=== PATIENT | female | born 1955 | race Caucasian/White ===

== ENCOUNTER 2018-06-29 13:51 | Inpatient (IN) | payer BC ==
[2018-06-29] MEDS: SODIUM CHLORIDE 0.9% 1L BAG IV* (14:03)
[2018-06-29 14:05] LABS: ADD MAN DIFF? NO
[2018-06-29 14:14] LABS: BASOPHILS % 0.1 % (0.0-2.0); HEMATOCRIT 44.1 % (37.0-47.0); HEMOGLOBIN 14.3 g/dl (12.0-16.0); LYMPHOCYTES # 2.3 10^3/ul (0.8-2.9); LYMPHOCYTES % 11.4 % (15.0-51.0); MEAN CORPUSCULAR HEMOGLOBIN 29.5 pg (29.0-33.0); MEAN CORPUSCULAR HGB CONC 32.4 g/dl (32.0-37.0); MEAN CORPUSCULAR VOLUME 90.9 fl (82.0-101.0); MEAN PLATELET VOLUME 11.1 fl (7.4-10.4); MONOCYTE # 1.5 10^3/ul (0.3-0.9); MONOCYTES % 7.5 % (0.0-11.0); NEUTROPHIL # 16.1 10^3/ul (1.6-7.5); NEUTROPHILS % 80.5 % (39.0-77.0); PLATELET COUNT 260 10^3/UL (140-415); RED BLOOD COUNT 4.85 10^6/ul (4.20-5.40); RED CELL DISTRIBUTION WIDTH 14.9 % (11.5-14.5)
[2018-06-29 14:14] LABS: WHITE BLOOD COUNT 20.1 10^3/ul (4.8-10.8)
[2018-06-29 14:22] LABS: ADD UMIC NO; UR ASCORBIC ACID NEGATIVE (NEGATIVE); UR BILIRUBIN (Dip) NEGATIVE (NEGATIVE); UR BLOOD (Dip) NEGATIVE (NEGATIVE); UR CLARITY SLIGHTLY CLOUDY (CLEAR); UR COLOR YELLOW (YELLOW); UR GLUCOSE (Dip) NEGATIVE (NEGATIVE); UR HYALINE CAST FEW /HPF (NONE SEEN); UR KETONES (Dip) TRACE mg/dL (NEGATIVE); UR LEUKOCYTE ESTERASE (Dip) NEGATIVE Leu/ul (NEGATIVE); UR MUCUS MODERATE /HPF (NONE SEEN); UR NITRITE (Dip) NEGATIVE (NEGATIVE); UR RBC 2 /HPF (0-5); UR SPECIFIC GRAVITY (Dip) 1.021 (1.003-1.030); UR SQUAMOUS EPITHELIAL CELL FEW /HPF (FEW); UR TOTAL PROTEIN (Dip) NEGATIVE (NEGATIVE); UR UROBILINOGEN (Dip) NEGATIVE (NEGATIVE); UR WBC 5 /HPF (0-5)
[2018-06-29] MEDS ORDERED: DILTIAZEM 25 MG INJ (14:27)
[2018-06-29] MEDS: DILTIAZEM 25 MG INJ IV (14:29)
[2018-06-29 14:32] LABS: ALANINE AMINOTRANSFERASE 43 IU/L (13-69); ALBUMIN 4.4 g/dl (3.3-4.9); ALBUMIN/GLOBULIN RATIO 0.84; ALKALINE PHOSPHATASE 142 IU/L (42-121); ANION GAP 19 (5-13); ASPARTATE AMINO TRANSFERASE 89 IU/L (15-46); BILIRUBIN,INDIRECT 0.4 mg/dl (0-1.1); BILIRUBIN,TOTAL 0.4 mg/dl (0.2-1.3); BLOOD UREA NITROGEN 103 mg/dl (7-20); CALCIUM 10.8 mg/dl (8.4-10.2); CARBON DIOXIDE 20 mmol/L (21-31); CHLORIDE 111 mmol/L (97-110); CREATININE 1.41 mg/dl (0.44-1.00); Estimated GFR 38 mL/min (>60); GLUCOSE 152 mg/dl (70-220); POTASSIUM 4.2 mmol/L (3.5-5.1); SODIUM 150 mmol/L (135-144); TOTAL PROTEIN 9.6 g/dl (6.1-8.1)
[2018-06-29 14:40] LABS: CREATINE KINASE 2323 IU/L (23-200)
[2018-06-29] MEDS: LABETALOL HCL 20MG INJ IV (14:47)
[2018-06-29] MEDS: ASPIRIN 600 MG SUPP PR (14:49)
[2018-06-29 15:01] LABS: INR 1.18; PROTIME 15.1 Sec (11.9-14.9); PT RATIO 1.2
[2018-06-29 15:02] LABS: PARTIAL THROMBOPLASTIN TIME 27.3 Sec (23.0-35.0)
[2018-06-29] MEDS ORDERED: SOD CHLORIDE 0.9% 1,000 ML IV (15:39)
[2018-06-29] MEDS ORDERED: LORAZEPAM 2 MG INJ IV (16:00)
[2018-06-29] MEDS ORDERED: NACL 0.9% 3 ML SYG IV (16:00)
[2018-06-29] MEDS ORDERED: hydrALAzine 20 MG INJ IV (16:00)
[2018-06-29] MEDS ORDERED: DOCUSATE SODIUM 100 MG CAP PO (16:00)
[2018-06-29] MEDS ORDERED: morphine 2 MG INJ IV (16:00)
[2018-06-29] MEDS ORDERED: ONDANSETRON 4 MG INJ IV (16:00)
[2018-06-29] MEDS ORDERED: NITROGLYCERIN (SL) 0.4 MG TAB SL (16:00)
[2018-06-29] MEDS ORDERED: CEFEPIME 2GM/50 ML (PMX) 50 ML IVPB (16:02)
[2018-06-29] MEDS ORDERED: SODIUM BICARBONATE (IV ADD) 100 MEQ in DEXTROSE 5% 1,000 ML IV (16:30)
[2018-06-29] MEDS: ASPIRIN (EC) 81 MG TAB PO (16:30)
[2018-06-29] MEDS ORDERED: DEXTROSE 5% 1,000 ML IV (16:30)
[2018-06-29] MEDS ORDERED: DILTIAZEM-D5W 125MG/125ML DRIP 125 ML IV (16:30)
[2018-06-29 16:44] LABS: HEMOGLOBIN A1C 5.8 % (0-5.9)
[2018-06-29 16:47] LABS: CREATINE KINASE 2341 IU/L (23-200)
[2018-06-29 16:57] LABS: FREE T4 (FREE THYROXINE) 1.75 ng/dl (0.78-2.44)
[2018-06-29] MEDS ORDERED: DEXTROSE 50% 50 ML SYRINGE IV ×2 (17:00)
[2018-06-29] MEDS: INSULIN ASPART [NOVOLOG] 3 ML PEN SC ×2 (17:00→21:00)
[2018-06-29] MEDS ORDERED: GLUCAGON 1 MG INJ IM (17:00)
[2018-06-29] MEDS ORDERED: GLUCOSE GEL 15 GRAM TUBE BUCCAL (17:00)
[2018-06-29] MEDS ORDERED: GLUCOSE GEL 15 GRAM TUBE PO ×2 (17:00)
[2018-06-29 17:12] LABS: SODIUM,URINE RANDOM < 13 mmol/L (30-90)
[2018-06-29 17:13] LABS: PROTEIN/CREAT RATIO 0.09 RATIO
[2018-06-29] MEDS: FAMOTIDINE 20 MG INJ IV (17:29)
[2018-06-29] MEDS: SOD CHLORIDE 0.45% 1,000 ML IV (17:33)
[2018-06-29] MEDS: VANCOMYCIN 1 GM (PMX) 250 ML IVPB (17:33)
[2018-06-29 18:21] LABS: LACTIC ACID 2.5 mmol/L (0.5-2.0)
[2018-06-29 18:36] LABS: AADO2 Arterial 172.6 mmHg (7.0-24.0); Allen Test ACCEPTAB; Arterial Base Excess -2.4 mmol/L (-3.0-3); Arterial Blood Gas Oxygen Sat 93.5 mmHG (95.0-98.0); Arterial COHb 0.3 % (0.0-3.0); Arterial Fraction of Oxyhgb 92.9 % (93.0-99.0); Arterial HCO3 20.3 mmol/L (22.0-26.0); Arterial MetHb 0.3 % (0.0-1.5); Arterial pCO2 29.2 mmhg (35-45); MODE NASAL CANNULA; Site Right Radial
[2018-06-29] MEDS: ATORVASTATIN 80 MG TAB PO (20:40)
[2018-06-29 21:52] LABS: AADO2 Arterial 157.7 mmHg (7.0-24.0); Allen Test ACCEPTAB; Arterial Blood Gas Oxygen Sat 95.8 mmHG (95.0-98.0); Arterial COHb 0.3 % (0.0-3.0); Arterial Fraction of Oxyhgb 95.2 % (93.0-99.0); Arterial HCO3 21.5 mmol/L (22.0-26.0); Arterial MetHb 0.3 % (0.0-1.5); Arterial pCO2 29.4 mmhg (35-45); MODE NASAL CANNULA; Site Right Radial
[2018-06-29] MEDS: HEPARIN 5,000 UNIT/1 ML VIAL SC (22:17)
[2018-06-29 22:22] LABS: LACTIC ACID 1.5 mmol/L (0.5-2.0)
[2018-06-29 22:30] LABS: CREATINE KINASE 2330 IU/L (23-200)
[2018-06-29 22:35] LABS: CK INDEX 0.6; TROPONIN-I 0.056 ng/ml (0.000-0.120)
[2018-06-30] MEDS: INSULIN ASPART [NOVOLOG] 3 ML PEN SC ×6 (01:16→20:48)
[2018-06-30] MEDS: CEFEPIME 2GM/50 ML (PMX) 50 ML IVPB (01:21)
[2018-06-30 01:41] LABS: LACTIC ACID 1.3 mmol/L (0.5-2.0)
[2018-06-30] MEDS: DOXYCYCLINE 100 MG in SOD CHLORIDE 0.9% 250 ML IVPB ×3 (02:38→20:48)
[2018-06-30 05:25] LABS: ADD MAN DIFF? NO
[2018-06-30 05:35] LABS: BASOPHILS % 0.1 % (0.0-2.0); EOSINOPHILS % 0.1 % (0.0-7.0); HEMATOCRIT 34.6 % (37.0-47.0); LYMPHOCYTES # 2.1 10^3/ul (0.8-2.9); LYMPHOCYTES % 12.8 % (15.0-51.0); MEAN CORPUSCULAR HEMOGLOBIN 29.7 pg (29.0-33.0); MEAN CORPUSCULAR HGB CONC 31.8 g/dl (32.0-37.0); MEAN CORPUSCULAR VOLUME 93.5 fl (82.0-101.0); MEAN PLATELET VOLUME 11.3 fl (7.4-10.4); MONOCYTE # 1.4 10^3/ul (0.3-0.9); MONOCYTES % 8.4 % (0.0-11.0); NEUTROPHIL # 12.9 10^3/ul (1.6-7.5); NEUTROPHILS % 78.1 % (39.0-77.0); PLATELET COUNT 186 10^3/UL (140-415); RED CELL DISTRIBUTION WIDTH 15.1 % (11.5-14.5)
[2018-06-30 05:35] LABS: WHITE BLOOD COUNT 16.5 10^3/ul (4.8-10.8)
[2018-06-30] MEDS: SOD CHLORIDE 0.45% 1,000 ML IV ×3 (05:52→15:48)
[2018-06-30 05:55] LABS: HEMOGLOBIN A1C 5.8 % (0-5.9)
[2018-06-30 06:02] LABS: CHOL/HDL RATIO 9.2 RATIO; HDL CHOLESTEROL 28 mg/dl (35-98); LDL CHOLESTEROL,CALCULATED 134 mg/dl; TRIGLYCERIDES 489 mg/dl (0-149)
[2018-06-30 06:02] LABS: CHOLESTEROL 260 mg/dl (100-200); LACTIC ACID 1.5 mmol/L (0.5-2.0)
[2018-06-30 06:07] LABS: CREATINE KINASE 1536 IU/L (23-200)
[2018-06-30 06:08] LABS: URIC ACID 15.2 mg/dl (3.1-7.9)
[2018-06-30 06:09] LABS: ANION GAP 7 (5-13); BLOOD UREA NITROGEN 73 mg/dl (7-20); CALCIUM 9.1 mg/dl (8.4-10.2); CARBON DIOXIDE 22 mmol/L (21-31); CHLORIDE 122 mmol/L (97-110); CREATININE 0.93 mg/dl (0.44-1.00); Estimated GFR > 60 mL/min (>60); GLUCOSE 131 mg/dl (70-220); MAGNESIUM 2.6 mg/dl (1.7-2.5); POTASSIUM 4.3 mmol/L (3.5-5.1); SODIUM 151 mmol/L (135-144)
[2018-06-30] MEDS: ASPIRIN (EC) 81 MG TAB PO ×2 (08:11→11:49)
[2018-06-30] MEDS: HEPARIN 5,000 UNIT/1 ML VIAL SC ×2 (08:36→20:46)
[2018-06-30] MEDS: FAMOTIDINE 20 MG INJ IV (08:39)
[2018-06-30] MEDS: ALLOPURINOL 100 MG TAB PO ×3 (10:30→20:43)
[2018-06-30] MEDS: IOHEXOL 100 ML ×2 (11:33→23:11)
[2018-06-30] MEDS: SOD CHLORIDE 0.9% 100 ML ×2 (11:33→23:10)
[2018-06-30] MEDS ORDERED: PENDING SANTYL ORDER FOR WOUND CARE XX (14:00)
[2018-06-30 16:17] LABS: ERYTHROCYTE SEDIMENTATION RATE 76 mm/Hr (0-30)
[2018-06-30 18:28] LABS: RAPID PLASMA REAGIN NONREACTIVE (NR)
[2018-06-30] MEDS: ATORVASTATIN 80 MG TAB PO (20:44)
[2018-06-30] MEDS: ACETAMINOPHEN 325 MG TAB PO (23:42)
[2018-07-01] MEDS: HYDROCODONE/APAP (5/325) TAB PO (00:14)
[2018-07-01] MEDS: INSULIN ASPART [NOVOLOG] 3 ML PEN SC ×6 (01:00→23:54)
[2018-07-01] MEDS: ALBUTEROL/IPRATROPIUM (NEB) 3 ML AMP HHN (01:05)
[2018-07-01] MEDS: SOD CHLORIDE 0.45% 1,000 ML IV ×3 (03:10→19:00)
[2018-07-01] MEDS ORDERED: COLLAGENASE 5 GM (UD JAR) TOP (04:00)
[2018-07-01 05:34] LABS: ADD MAN DIFF? NO
[2018-07-01 05:38] LABS: AMPHETAMINE/METHAMPHETAMINE Negative (NEGATIVE); BARBITURATES Negative (NEGATIVE); BENZODIAZEPINES Negative (NEGATIVE); CANNABINOIDS Negative (NEGATIVE); COCAINE Negative (NEGATIVE); OPIATES Negative (NEGATIVE)
[2018-07-01 05:44] LABS: WHITE BLOOD COUNT 12.4 10^3/ul (4.8-10.8)
[2018-07-01 05:44] LABS: ABNORMAL IP MESSAGE 1; BASOPHIL # 0.1 10^3/ul (0.0-0.1); BASOPHILS % 0.5 % (0.0-2.0); EOSINOPHILS # 0.2 10^3/ul (0.0-0.5); EOSINOPHILS % 1.9 % (0.0-7.0); HEMATOCRIT 31.3 % (37.0-47.0); HEMOGLOBIN 9.5 g/dl (12.0-16.0); LYMPHOCYTES # 3.9 10^3/ul (0.8-2.9); LYMPHOCYTES % 31.6 % (15.0-51.0); MEAN CORPUSCULAR HGB CONC 30.4 g/dl (32.0-37.0); MEAN CORPUSCULAR VOLUME 98.7 fl (82.0-101.0); MEAN PLATELET VOLUME 11.1 fl (7.4-10.4); MONOCYTE # 1.6 10^3/ul (0.3-0.9); MONOCYTES % 12.8 % (0.0-11.0); NEUTROPHIL # 6.5 10^3/ul (1.6-7.5); NEUTROPHILS % 52.1 % (39.0-77.0); PLATELET COUNT 156 10^3/UL (140-415); RED BLOOD COUNT 3.17 10^6/ul (4.20-5.40); RED CELL DISTRIBUTION WIDTH 15.1 % (11.5-14.5)
[2018-07-01 06:02] LABS: POSITIVE DIFF @See below
[2018-07-01 06:23] LABS: CREATINE KINASE 1012 IU/L (23-200)
[2018-07-01 06:24] LABS: ANION GAP 8 (5-13); BLOOD UREA NITROGEN 35 mg/dl (7-20); CALCIUM 8.9 mg/dl (8.4-10.2); CARBON DIOXIDE 21 mmol/L (21-31); CHLORIDE 118 mmol/L (97-110); CREATININE 0.81 mg/dl (0.44-1.00); Estimated GFR > 60 mL/min (>60); GLUCOSE 86 mg/dl (70-220); POTASSIUM 3.9 mmol/L (3.5-5.1); SODIUM 147 mmol/L (135-144)
[2018-07-01] MEDS: BALSAM PERU/CASTOR OIL 60 GM TUBE TOP (08:11)
[2018-07-01] MEDS: COLLAGENASE 5 GM (UD JAR) TOP (08:11)
[2018-07-01] MEDS: ASPIRIN (EC) 81 MG TAB PO (08:12)
[2018-07-01] MEDS: FAMOTIDINE 20 MG TAB PO (08:12)
[2018-07-01] MEDS: DOXYCYCLINE 100 MG in SOD CHLORIDE 0.9% 250 ML IVPB (08:13)
[2018-07-01] MEDS: HEPARIN 5,000 UNIT/1 ML VIAL SC ×2 (08:23→21:53)
[2018-07-01] MEDS: ALLOPURINOL 100 MG TAB PO ×2 (08:25→21:38)
[2018-07-01 12:55] LABS: TROPONIN-I 0.025 ng/ml (0.000-0.120)
[2018-07-01 12:55] LABS: B-TYPE NATRIURETIC PEPTIDE 906 PG/ML (0-125)
[2018-07-01] MEDS: ATORVASTATIN 80 MG TAB PO (21:38)
[2018-07-01] MEDS: DOXYCYCLINE 100 MG TAB PO (21:38)
[2018-07-02] MEDS: ACETAMINOPHEN 325 MG TAB PO (00:20)
[2018-07-02] MEDS: SOD CHLORIDE 0.45% 1,000 ML IV ×4 (00:25→23:21)
[2018-07-02] MEDS: INSULIN ASPART [NOVOLOG] 3 ML PEN SC ×6 (02:36→20:48)
[2018-07-02 05:55] LABS: ADD MAN DIFF? NO
[2018-07-02 06:04] LABS: WHITE BLOOD COUNT 11.1 10^3/ul (4.8-10.8)
[2018-07-02 06:04] LABS: BASOPHILS % 0.3 % (0.0-2.0); EOSINOPHILS # 0.3 10^3/ul (0.0-0.5); EOSINOPHILS % 2.3 % (0.0-7.0); HEMATOCRIT 30.9 % (37.0-47.0); HEMOGLOBIN 9.8 g/dl (12.0-16.0); LYMPHOCYTES # 2.9 10^3/ul (0.8-2.9); LYMPHOCYTES % 26.5 % (15.0-51.0); MEAN CORPUSCULAR HEMOGLOBIN 30.2 pg (29.0-33.0); MEAN CORPUSCULAR HGB CONC 31.7 g/dl (32.0-37.0); MEAN CORPUSCULAR VOLUME 95.4 fl (82.0-101.0); MEAN PLATELET VOLUME 10.9 fl (7.4-10.4); MONOCYTE # 1.3 10^3/ul (0.3-0.9); MONOCYTES % 11.4 % (0.0-11.0); NEUTROPHIL # 6.5 10^3/ul (1.6-7.5); NEUTROPHILS % 58.7 % (39.0-77.0); PLATELET COUNT 161 10^3/UL (140-415); RED BLOOD COUNT 3.24 10^6/ul (4.20-5.40); RED CELL DISTRIBUTION WIDTH 14.5 % (11.5-14.5)
[2018-07-02 06:27] LABS: ANION GAP 6 (5-13); BLOOD UREA NITROGEN 22 mg/dl (7-20); CALCIUM 8.7 mg/dl (8.4-10.2); CARBON DIOXIDE 25 mmol/L (21-31); CHLORIDE 111 mmol/L (97-110); CREATININE 0.72 mg/dl (0.44-1.00); Estimated GFR > 60 mL/min (>60); GLUCOSE 156 mg/dl (70-220); POTASSIUM 3.5 mmol/L (3.5-5.1); SODIUM 142 mmol/L (135-144)
[2018-07-02] MEDS: BALSAM PERU/CASTOR OIL 60 GM TUBE TOP (09:00)
[2018-07-02] MEDS: DOXYCYCLINE 100 MG TAB PO ×2 (10:16→20:49)
[2018-07-02] MEDS: ASPIRIN (EC) 81 MG TAB PO (10:16)
[2018-07-02] MEDS: ALLOPURINOL 100 MG TAB PO ×2 (10:16→20:49)
[2018-07-02] MEDS: FAMOTIDINE 20 MG TAB PO (10:16)
[2018-07-02] MEDS: COLLAGENASE 5 GM (UD JAR) TOP (10:17)
[2018-07-02 10:43] LABS: CREATINE KINASE 905 IU/L (23-200)
[2018-07-02] MEDS: LEVOFLOXACIN 750MG/D5W (PMX) 150 ML IVPB (11:55)
[2018-07-02] MEDS: ATORVASTATIN 80 MG TAB PO (20:48)
[2018-07-02] MEDS: MAGNESIUM HYDROXIDE 30ML CUP PO (20:53)
[2018-07-03] MEDS: SOD CHLORIDE 0.45% 1,000 ML IV ×2 (01:00→10:06)
[2018-07-03] MEDS: INSULIN ASPART [NOVOLOG] 3 ML PEN SC ×6 (01:40→20:44)
[2018-07-03 06:24] LABS: ADD MAN DIFF? NO
[2018-07-03 06:36] LABS: BASOPHILS % 0.2 % (0.0-2.0); EOSINOPHILS # 0.2 10^3/ul (0.0-0.5); EOSINOPHILS % 1.5 % (0.0-7.0); HEMATOCRIT 29.6 % (37.0-47.0); HEMOGLOBIN 9.8 g/dl (12.0-16.0); LYMPHOCYTES # 2.1 10^3/ul (0.8-2.9); LYMPHOCYTES % 19.3 % (15.0-51.0); MEAN CORPUSCULAR HEMOGLOBIN 30.2 pg (29.0-33.0); MEAN CORPUSCULAR HGB CONC 33.1 g/dl (32.0-37.0); MEAN CORPUSCULAR VOLUME 91.4 fl (82.0-101.0); MEAN PLATELET VOLUME 11.7 fl (7.4-10.4); MONOCYTE # 1.1 10^3/ul (0.3-0.9); MONOCYTES % 9.7 % (0.0-11.0); NEUTROPHIL # 7.5 10^3/ul (1.6-7.5); PLATELET COUNT 174 10^3/UL (140-415); RED BLOOD COUNT 3.24 10^6/ul (4.20-5.40); RED CELL DISTRIBUTION WIDTH 14.1 % (11.5-14.5)
[2018-07-03 06:52] LABS: CREATINE KINASE 516 IU/L (23-200)
[2018-07-03 07:31] LABS: ANION GAP 9 (5-13); BLOOD UREA NITROGEN 19 mg/dl (7-20); CALCIUM 8.3 mg/dl (8.4-10.2); CARBON DIOXIDE 28 mmol/L (21-31); CHLORIDE 101 mmol/L (97-110); CREATININE 0.64 mg/dl (0.44-1.00); Estimated GFR > 60 mL/min (>60); GLUCOSE 175 mg/dl (70-220); POTASSIUM 3.7 mmol/L (3.5-5.1); SODIUM 138 mmol/L (135-144)
[2018-07-03] MEDS: ASPIRIN (EC) 81 MG TAB PO (09:35)
[2018-07-03] MEDS: ALLOPURINOL 100 MG TAB PO ×2 (09:36→20:42)
[2018-07-03] MEDS: FAMOTIDINE 20 MG TAB PO (09:36)
[2018-07-03] MEDS: DOXYCYCLINE 100 MG TAB PO (09:36)
[2018-07-03] MEDS: BALSAM PERU/CASTOR OIL 60 GM TUBE TOP (09:51)
[2018-07-03] MEDS: COLLAGENASE 5 GM (UD JAR) TOP (09:52)
[2018-07-03] MEDS: LEVOFLOXACIN 750MG/D5W (PMX) 150 ML IVPB (13:16)
[2018-07-03] MEDS: ATORVASTATIN 80 MG TAB PO (20:42)
[2018-07-04] MEDS: SOD CHLORIDE 0.45% 1,000 ML IV ×2 (00:54→13:58)
[2018-07-04] MEDS: INSULIN ASPART [NOVOLOG] 3 ML PEN SC ×6 (00:55→20:38)
[2018-07-04 06:21] LABS: ADD MAN DIFF? NO
[2018-07-04 06:35] LABS: BASOPHILS % 0.1 % (0.0-2.0); EOSINOPHILS # 0.3 10^3/ul (0.0-0.5); EOSINOPHILS % 2.1 % (0.0-7.0); HEMATOCRIT 30.5 % (37.0-47.0); LYMPHOCYTES # 2.2 10^3/ul (0.8-2.9); LYMPHOCYTES % 19.2 % (15.0-51.0); MEAN CORPUSCULAR HEMOGLOBIN 29.2 pg (29.0-33.0); MEAN CORPUSCULAR HGB CONC 32.8 g/dl (32.0-37.0); MEAN CORPUSCULAR VOLUME 88.9 fl (82.0-101.0); MEAN PLATELET VOLUME 11.5 fl (7.4-10.4); MONOCYTE # 1.3 10^3/ul (0.3-0.9); MONOCYTES % 10.7 % (0.0-11.0); NEUTROPHIL # 7.9 10^3/ul (1.6-7.5); NEUTROPHILS % 67.3 % (39.0-77.0); PLATELET COUNT 202 10^3/UL (140-415); RED BLOOD COUNT 3.43 10^6/ul (4.20-5.40); RED CELL DISTRIBUTION WIDTH 13.7 % (11.5-14.5)
[2018-07-04 06:35] LABS: WHITE BLOOD COUNT 11.7 10^3/ul (4.8-10.8)
[2018-07-04 07:02] LABS: CREATINE KINASE 250 IU/L (23-200)
[2018-07-04 07:10] LABS: ANION GAP 10 (5-13); BLOOD UREA NITROGEN 18 mg/dl (7-20); CALCIUM 8.4 mg/dl (8.4-10.2); CARBON DIOXIDE 27 mmol/L (21-31); CHLORIDE 99 mmol/L (97-110); CREATININE 0.69 mg/dl (0.44-1.00); Estimated GFR > 60 mL/min (>60); GLUCOSE 158 mg/dl (70-220); POTASSIUM 3.9 mmol/L (3.5-5.1); SODIUM 136 mmol/L (135-144)
[2018-07-04] MEDS: ASPIRIN (EC) 81 MG TAB PO (09:04)
[2018-07-04] MEDS: BALSAM PERU/CASTOR OIL 60 GM TUBE TOP (09:04)
[2018-07-04] MEDS: FAMOTIDINE 20 MG TAB PO (09:04)
[2018-07-04] MEDS: ALLOPURINOL 100 MG TAB PO ×2 (09:04→20:38)
[2018-07-04] MEDS: COLLAGENASE 5 GM (UD JAR) TOP (09:07)
[2018-07-04] MEDS: LEVOFLOXACIN 750MG/D5W (PMX) 150 ML IVPB (11:47)
[2018-07-04] MEDS: ACETAMINOPHEN 325 MG TAB PO (13:58)
[2018-07-04] MEDS ORDERED: morphine LIQ (10 MG/5 ML) CUP PO (16:00)
[2018-07-04] MEDS: HYDROCODONE/APAP (5/325) TAB PO (17:33)
[2018-07-04] MEDS: ATORVASTATIN 80 MG TAB PO (20:38)
[2018-07-05] MEDS: INSULIN ASPART [NOVOLOG] 3 ML PEN SC ×6 (00:29→20:08)
[2018-07-05] MEDS: HYDROCODONE/APAP (5/325) TAB PO ×3 (02:26→19:25)
[2018-07-05] MEDS: ACETAMINOPHEN 325 MG TAB PO (05:38)
[2018-07-05 05:40] LABS: ADD MAN DIFF? NO
[2018-07-05 05:42] LABS: BASOPHILS % 0.3 % (0.0-2.0); EOSINOPHILS # 0.4 10^3/ul (0.0-0.5); EOSINOPHILS % 3.8 % (0.0-7.0); HEMATOCRIT 30.6 % (37.0-47.0); HEMOGLOBIN 10.4 g/dl (12.0-16.0); LYMPHOCYTES # 2.1 10^3/ul (0.8-2.9); LYMPHOCYTES % 18.8 % (15.0-51.0); MEAN CORPUSCULAR HEMOGLOBIN 30.3 pg (29.0-33.0); MEAN CORPUSCULAR VOLUME 89.2 fl (82.0-101.0); MONOCYTES % 8.7 % (0.0-11.0); NEUTROPHIL # 7.6 10^3/ul (1.6-7.5); PLATELET COUNT 218 10^3/UL (140-415); RED BLOOD COUNT 3.43 10^6/ul (4.20-5.40)
[2018-07-05 05:42] LABS: WHITE BLOOD COUNT 11.2 10^3/ul (4.8-10.8)
[2018-07-05 06:22] LABS: ANION GAP 8 (5-13); BLOOD UREA NITROGEN 21 mg/dl (7-20); CALCIUM 8.8 mg/dl (8.4-10.2); CARBON DIOXIDE 28 mmol/L (21-31); CHLORIDE 102 mmol/L (97-110); CREATININE 0.75 mg/dl (0.44-1.00); Estimated GFR > 60 mL/min (>60); GLUCOSE 191 mg/dl (70-220); POTASSIUM 3.9 mmol/L (3.5-5.1); SODIUM 138 mmol/L (135-144)
[2018-07-05] MEDS: ALLOPURINOL 100 MG TAB PO ×2 (09:13→20:09)
[2018-07-05] MEDS: FAMOTIDINE 20 MG TAB PO (09:13)
[2018-07-05] MEDS: ASPIRIN (EC) 81 MG TAB PO (09:14)
[2018-07-05] MEDS: COLLAGENASE 5 GM (UD JAR) TOP (09:20)
[2018-07-05] MEDS: BALSAM PERU/CASTOR OIL 60 GM TUBE TOP (09:20)
[2018-07-05] MEDS: LEVOFLOXACIN 750MG/D5W (PMX) 150 ML IVPB (10:14)
[2018-07-05] MEDS: MAGNESIUM HYDROXIDE 30ML CUP PO (19:25)
[2018-07-05] MEDS: ATORVASTATIN 80 MG TAB PO (20:09)
[2018-07-06] MEDS: INSULIN ASPART [NOVOLOG] 3 ML PEN SC ×6 (01:51→20:21)
[2018-07-06] MEDS: HYDROCODONE/APAP (5/325) TAB PO (05:55)
[2018-07-06 06:24] LABS: ADD MAN DIFF? NO
[2018-07-06 06:27] LABS: WHITE BLOOD COUNT 10.8 10^3/ul (4.8-10.8)
[2018-07-06 06:27] LABS: BASOPHILS % 0.3 % (0.0-2.0); EOSINOPHILS # 0.3 10^3/ul (0.0-0.5); HEMATOCRIT 31.3 % (37.0-47.0); HEMOGLOBIN 10.4 g/dl (12.0-16.0); LYMPHOCYTES # 1.9 10^3/ul (0.8-2.9); LYMPHOCYTES % 17.5 % (15.0-51.0); MEAN CORPUSCULAR HEMOGLOBIN 29.3 pg (29.0-33.0); MEAN CORPUSCULAR HGB CONC 33.2 g/dl (32.0-37.0); MEAN CORPUSCULAR VOLUME 88.2 fl (82.0-101.0); MEAN PLATELET VOLUME 10.8 fl (7.4-10.4); MONOCYTE # 1.2 10^3/ul (0.3-0.9); MONOCYTES % 10.6 % (0.0-11.0); NEUTROPHIL # 7.4 10^3/ul (1.6-7.5); NEUTROPHILS % 68.1 % (39.0-77.0); PLATELET COUNT 268 10^3/UL (140-415); RED BLOOD COUNT 3.55 10^6/ul (4.20-5.40); RED CELL DISTRIBUTION WIDTH 13.9 % (11.5-14.5)
[2018-07-06 07:00] LABS: ANION GAP 9 (5-13); BLOOD UREA NITROGEN 25 mg/dl (7-20); CALCIUM 8.6 mg/dl (8.4-10.2); CARBON DIOXIDE 26 mmol/L (21-31); CHLORIDE 102 mmol/L (97-110); CREATININE 0.78 mg/dl (0.44-1.00); Estimated GFR > 60 mL/min (>60); GLUCOSE 152 mg/dl (70-220); POTASSIUM 4.2 mmol/L (3.5-5.1); SODIUM 137 mmol/L (135-144)
[2018-07-06] MEDS: ASPIRIN (EC) 81 MG TAB PO (08:52)
[2018-07-06] MEDS: FAMOTIDINE 20 MG TAB PO (08:52)
[2018-07-06] MEDS: ALLOPURINOL 100 MG TAB PO ×2 (08:52→20:11)
[2018-07-06] MEDS: COLLAGENASE 5 GM (UD JAR) TOP (08:52)
[2018-07-06] MEDS: BALSAM PERU/CASTOR OIL 60 GM TUBE TOP (09:01)
[2018-07-06] MEDS: LEVOFLOXACIN 750MG/D5W (PMX) 150 ML IVPB (11:19)
[2018-07-06] MEDS: ATORVASTATIN 80 MG TAB PO (20:11)
[2018-07-06] MEDS: ACETAMINOPHEN 325 MG TAB PO (23:43)
[2018-07-07] MEDS: INSULIN ASPART [NOVOLOG] 3 ML PEN SC ×6 (01:19→20:54)
[2018-07-07 05:30] LABS: ADD MAN DIFF? NO
[2018-07-07 05:35] LABS: WHITE BLOOD COUNT 11.4 10^3/ul (4.8-10.8)
[2018-07-07 05:35] LABS: BASOPHILS % 0.2 % (0.0-2.0); EOSINOPHILS # 0.3 10^3/ul (0.0-0.5); EOSINOPHILS % 2.6 % (0.0-7.0); HEMATOCRIT 32.7 % (37.0-47.0); LYMPHOCYTES # 2.5 10^3/ul (0.8-2.9); LYMPHOCYTES % 21.6 % (15.0-51.0); MEAN CORPUSCULAR HEMOGLOBIN 29.4 pg (29.0-33.0); MEAN CORPUSCULAR HGB CONC 33.6 g/dl (32.0-37.0); MEAN CORPUSCULAR VOLUME 87.4 fl (82.0-101.0); MEAN PLATELET VOLUME 10.4 fl (7.4-10.4); MONOCYTE # 1.2 10^3/ul (0.3-0.9); MONOCYTES % 10.7 % (0.0-11.0); NEUTROPHIL # 7.3 10^3/ul (1.6-7.5); NEUTROPHILS % 64.5 % (39.0-77.0); PLATELET COUNT 299 10^3/UL (140-415); RED BLOOD COUNT 3.74 10^6/ul (4.20-5.40); RED CELL DISTRIBUTION WIDTH 13.9 % (11.5-14.5)
[2018-07-07 06:04] LABS: ANION GAP 8 (5-13); BLOOD UREA NITROGEN 25 mg/dl (7-20); CALCIUM 8.9 mg/dl (8.4-10.2); CARBON DIOXIDE 27 mmol/L (21-31); CHLORIDE 100 mmol/L (97-110); CREATININE 0.82 mg/dl (0.44-1.00); Estimated GFR > 60 mL/min (>60); GLUCOSE 141 mg/dl (70-220); POTASSIUM 4.2 mmol/L (3.5-5.1); SODIUM 135 mmol/L (135-144)
[2018-07-07] MEDS: FAMOTIDINE 20 MG TAB PO (09:14)
[2018-07-07] MEDS: ALLOPURINOL 100 MG TAB PO ×2 (09:15→20:49)
[2018-07-07] MEDS: ASPIRIN (EC) 81 MG TAB PO (09:15)
[2018-07-07] MEDS: BALSAM PERU/CASTOR OIL 60 GM TUBE TOP (09:29)
[2018-07-07] MEDS: COLLAGENASE 5 GM (UD JAR) TOP (09:29)
[2018-07-07] MEDS: ACETAMINOPHEN 325 MG TAB PO (14:51)
[2018-07-07] MEDS: ATORVASTATIN 80 MG TAB PO (20:49)
[2018-07-08] MEDS: INSULIN ASPART [NOVOLOG] 3 ML PEN SC ×6 (00:43→22:47)
[2018-07-08] MEDS: HYDROCODONE/APAP (5/325) TAB PO (05:41)
[2018-07-08] MEDS: ALLOPURINOL 100 MG TAB PO ×2 (08:38→23:13)
[2018-07-08] MEDS: FAMOTIDINE 20 MG TAB PO (08:38)
[2018-07-08] MEDS: ASPIRIN (EC) 81 MG TAB PO (08:38)
[2018-07-08] MEDS: BALSAM PERU/CASTOR OIL 60 GM TUBE TOP (08:39)
[2018-07-08] MEDS: COLLAGENASE 5 GM (UD JAR) TOP (08:40)
[2018-07-08] MEDS: ATORVASTATIN 80 MG TAB PO (23:13)
[2018-07-09] MEDS: INSULIN ASPART [NOVOLOG] 3 ML PEN SC ×6 (01:38→21:45)
[2018-07-09 05:54] LABS: ADD MAN DIFF? NO
[2018-07-09 05:58] LABS: BASOPHILS % 0.3 % (0.0-2.0); EOSINOPHILS # 0.3 10^3/ul (0.0-0.5); EOSINOPHILS % 2.4 % (0.0-7.0); HEMATOCRIT 32.8 % (37.0-47.0); HEMOGLOBIN 10.9 g/dl (12.0-16.0); LYMPHOCYTES # 2.6 10^3/ul (0.8-2.9); LYMPHOCYTES % 21.4 % (15.0-51.0); MEAN CORPUSCULAR HEMOGLOBIN 29.5 pg (29.0-33.0); MEAN CORPUSCULAR HGB CONC 33.2 g/dl (32.0-37.0); MEAN CORPUSCULAR VOLUME 88.6 fl (82.0-101.0); MEAN PLATELET VOLUME 10.1 fl (7.4-10.4); MONOCYTE # 1.2 10^3/ul (0.3-0.9); MONOCYTES % 9.5 % (0.0-11.0); NEUTROPHILS % 65.8 % (39.0-77.0); PLATELET COUNT 398 10^3/UL (140-415); RED CELL DISTRIBUTION WIDTH 13.5 % (11.5-14.5)
[2018-07-09 05:58] LABS: WHITE BLOOD COUNT 12.1 10^3/ul (4.8-10.8)
[2018-07-09 06:24] LABS: ANION GAP 12 (5-13); BLOOD UREA NITROGEN 26 mg/dl (7-20); CALCIUM 9.2 mg/dl (8.4-10.2); CARBON DIOXIDE 26 mmol/L (21-31); CHLORIDE 99 mmol/L (97-110); CREATININE 0.66 mg/dl (0.44-1.00); Estimated GFR > 60 mL/min (>60); GLUCOSE 173 mg/dl (70-220); MAGNESIUM 2.1 mg/dl (1.7-2.5); PHOSPHORUS 4.4 mg/dl (2.5-4.9); POTASSIUM 4.1 mmol/L (3.5-5.1); SODIUM 137 mmol/L (135-144)
[2018-07-09] MEDS: COLLAGENASE 5 GM (UD JAR) TOP (09:28)
[2018-07-09] MEDS: FAMOTIDINE 20 MG TAB PO (09:29)
[2018-07-09] MEDS: ASPIRIN (EC) 81 MG TAB PO (09:29)
[2018-07-09] MEDS: ALLOPURINOL 100 MG TAB PO ×2 (09:29→21:34)
[2018-07-09] MEDS: BALSAM PERU/CASTOR OIL 60 GM TUBE TOP (09:29)
[2018-07-09] MEDS: ATORVASTATIN 80 MG TAB PO (21:33)
[2018-07-10] MEDS: INSULIN ASPART [NOVOLOG] 3 ML PEN SC ×6 (01:00→20:45)
[2018-07-10 01:34] LABS: ADD UMIC YES; UR ASCORBIC ACID 40 mg/dL (NEGATIVE); UR BACTERIA FEW /HPF (NONE SEEN); UR BILIRUBIN (Dip) NEGATIVE (NEGATIVE); UR BLOOD (Dip) 3+ mg/dL (NEGATIVE); UR CLARITY CLOUDY (CLEAR); UR COLOR YELLOW (YELLOW); UR GLUCOSE (Dip) NEGATIVE (NEGATIVE); UR KETONES (Dip) NEGATIVE (NEGATIVE); UR LEUKOCYTE ESTERASE (Dip) NEGATIVE Leu/ul (NEGATIVE); UR MUCUS FEW /HPF (NONE SEEN); UR NITRITE (Dip) NEGATIVE (NEGATIVE); UR RBC > 182 /HPF (0-5); UR SPECIFIC GRAVITY (Dip) 1.017 (1.003-1.030); UR SQUAMOUS EPITHELIAL CELL FEW /HPF (FEW); UR TOTAL PROTEIN (Dip) 1+ mg/dl (NEGATIVE); UR UROBILINOGEN (Dip) NEGATIVE (NEGATIVE); UR WBC 6 /HPF (0-5)
[2018-07-10 06:15] LABS: ADD MAN DIFF? NO
[2018-07-10 06:17] LABS: BASOPHILS % 0.3 % (0.0-2.0); EOSINOPHILS # 0.3 10^3/ul (0.0-0.5); EOSINOPHILS % 2.3 % (0.0-7.0); HEMOGLOBIN 11.1 g/dl (12.0-16.0); LYMPHOCYTES # 2.5 10^3/ul (0.8-2.9); LYMPHOCYTES % 21.4 % (15.0-51.0); MEAN CORPUSCULAR HEMOGLOBIN 29.4 pg (29.0-33.0); MEAN CORPUSCULAR HGB CONC 33.6 g/dl (32.0-37.0); MEAN CORPUSCULAR VOLUME 87.3 fl (82.0-101.0); MONOCYTE # 1.4 10^3/ul (0.3-0.9); MONOCYTES % 11.8 % (0.0-11.0); NEUTROPHIL # 7.5 10^3/ul (1.6-7.5); NEUTROPHILS % 63.8 % (39.0-77.0); PLATELET COUNT 438 10^3/UL (140-415); RED BLOOD COUNT 3.78 10^6/ul (4.20-5.40); RED CELL DISTRIBUTION WIDTH 13.5 % (11.5-14.5)
[2018-07-10 06:17] LABS: WHITE BLOOD COUNT 11.7 10^3/ul (4.8-10.8)
[2018-07-10 07:04] LABS: ANION GAP 10 (5-13); BLOOD UREA NITROGEN 23 mg/dl (7-20); CALCIUM 9.3 mg/dl (8.4-10.2); CARBON DIOXIDE 28 mmol/L (21-31); CHLORIDE 99 mmol/L (97-110); CREATININE 0.72 mg/dl (0.44-1.00); Estimated GFR > 60 mL/min (>60); GLUCOSE 153 mg/dl (70-220); POTASSIUM 4.1 mmol/L (3.5-5.1); SODIUM 137 mmol/L (135-144)
[2018-07-10] MEDS: FAMOTIDINE 20 MG TAB PO (10:08)
[2018-07-10] MEDS: COLLAGENASE 5 GM (UD JAR) TOP (10:08)
[2018-07-10] MEDS: ASPIRIN (EC) 81 MG TAB PO (10:08)
[2018-07-10] MEDS: ALLOPURINOL 100 MG TAB PO ×2 (10:08→20:42)
[2018-07-10] MEDS: BALSAM PERU/CASTOR OIL 60 GM TUBE TOP (10:15)
[2018-07-10] MEDS: ATORVASTATIN 80 MG TAB PO (20:42)
[2018-07-11] MEDS: INSULIN ASPART [NOVOLOG] 3 ML PEN SC ×6 (02:09→23:04)
[2018-07-11 05:32] LABS: ADD MAN DIFF? NO
[2018-07-11 05:46] LABS: BASOPHILS % 0.3 % (0.0-2.0); EOSINOPHILS # 0.3 10^3/ul (0.0-0.5); HEMATOCRIT 33.2 % (37.0-47.0); HEMOGLOBIN 11.2 g/dl (12.0-16.0); LYMPHOCYTES # 2.4 10^3/ul (0.8-2.9); LYMPHOCYTES % 27.1 % (15.0-51.0); MEAN CORPUSCULAR HEMOGLOBIN 29.6 pg (29.0-33.0); MEAN CORPUSCULAR HGB CONC 33.7 g/dl (32.0-37.0); MEAN CORPUSCULAR VOLUME 87.6 fl (82.0-101.0); MEAN PLATELET VOLUME 9.8 fl (7.4-10.4); MONOCYTES % 11.2 % (0.0-11.0); NEUTROPHIL # 5.2 10^3/ul (1.6-7.5); PLATELET COUNT 450 10^3/UL (140-415); RED BLOOD COUNT 3.79 10^6/ul (4.20-5.40); RED CELL DISTRIBUTION WIDTH 13.6 % (11.5-14.5)
[2018-07-11 05:46] LABS: WHITE BLOOD COUNT 8.9 10^3/ul (4.8-10.8)
[2018-07-11 06:31] LABS: ANION GAP 13 (5-13); BLOOD UREA NITROGEN 25 mg/dl (7-20); CALCIUM 9.4 mg/dl (8.4-10.2); CARBON DIOXIDE 25 mmol/L (21-31); CHLORIDE 99 mmol/L (97-110); CREATININE 0.62 mg/dl (0.44-1.00); Estimated GFR > 60 mL/min (>60); GLUCOSE 164 mg/dl (70-220); POTASSIUM 4.1 mmol/L (3.5-5.1); SODIUM 137 mmol/L (135-144)
[2018-07-11] MEDS: ALLOPURINOL 100 MG TAB PO ×2 (09:24→22:54)
[2018-07-11] MEDS: FAMOTIDINE 20 MG TAB PO (09:24)
[2018-07-11] MEDS: ASPIRIN (EC) 81 MG TAB PO (09:24)
[2018-07-11] MEDS: COLLAGENASE 5 GM (UD JAR) TOP (09:24)
[2018-07-11] MEDS: BALSAM PERU/CASTOR OIL 60 GM TUBE TOP (09:25)
[2018-07-11] MEDS: ATORVASTATIN 80 MG TAB PO (22:54)
[2018-07-12] MEDS: INSULIN ASPART [NOVOLOG] 3 ML PEN SC ×6 (01:00→21:00)
[2018-07-12 05:58] LABS: ADD MAN DIFF? NO
[2018-07-12 06:07] LABS: BASOPHILS % 0.4 % (0.0-2.0); EOSINOPHILS # 0.2 10^3/ul (0.0-0.5); EOSINOPHILS % 2.3 % (0.0-7.0); HEMATOCRIT 32.3 % (37.0-47.0); HEMOGLOBIN 10.8 g/dl (12.0-16.0); LYMPHOCYTES # 2.5 10^3/ul (0.8-2.9); LYMPHOCYTES % 30.8 % (15.0-51.0); MEAN CORPUSCULAR HEMOGLOBIN 29.3 pg (29.0-33.0); MEAN CORPUSCULAR HGB CONC 33.4 g/dl (32.0-37.0); MEAN CORPUSCULAR VOLUME 87.5 fl (82.0-101.0); MEAN PLATELET VOLUME 9.7 fl (7.4-10.4); MONOCYTE # 0.8 10^3/ul (0.3-0.9); MONOCYTES % 10.1 % (0.0-11.0); NEUTROPHIL # 4.6 10^3/ul (1.6-7.5); NEUTROPHILS % 55.9 % (39.0-77.0); PLATELET COUNT 471 10^3/UL (140-415); RED BLOOD COUNT 3.69 10^6/ul (4.20-5.40); RED CELL DISTRIBUTION WIDTH 13.6 % (11.5-14.5)
[2018-07-12 06:07] LABS: WHITE BLOOD COUNT 8.2 10^3/ul (4.8-10.8)
[2018-07-12 06:45] LABS: ANION GAP 13 (5-13); BLOOD UREA NITROGEN 25 mg/dl (7-20); CALCIUM 9.4 mg/dl (8.4-10.2); CARBON DIOXIDE 25 mmol/L (21-31); CHLORIDE 100 mmol/L (97-110); CREATININE 0.59 mg/dl (0.44-1.00); Estimated GFR > 60 mL/min (>60); GLUCOSE 171 mg/dl (70-220); POTASSIUM 3.9 mmol/L (3.5-5.1); SODIUM 138 mmol/L (135-144)
[2018-07-12] MEDS: ALLOPURINOL 100 MG TAB PO ×2 (08:24→22:19)
[2018-07-12] MEDS: ASPIRIN (EC) 81 MG TAB PO (08:24)
[2018-07-12] MEDS: FAMOTIDINE 20 MG TAB PO (08:24)
[2018-07-12] MEDS: LISINOPRIL 5 MG TAB PO (08:25)
[2018-07-12] MEDS: COLLAGENASE 5 GM (UD JAR) TOP (08:26)
[2018-07-12] MEDS: BALSAM PERU/CASTOR OIL 60 GM TUBE TOP (08:27)
[2018-07-12] MEDS: ATORVASTATIN 80 MG TAB PO (22:19)
[2018-07-13] MEDS: INSULIN ASPART [NOVOLOG] 3 ML PEN SC ×6 (02:47→22:27)
[2018-07-13 06:11] LABS: ADD MAN DIFF? NO
[2018-07-13 06:13] LABS: BASOPHILS % 0.2 % (0.0-2.0); EOSINOPHILS # 0.2 10^3/ul (0.0-0.5); EOSINOPHILS % 2.4 % (0.0-7.0); HEMATOCRIT 31.9 % (37.0-47.0); HEMOGLOBIN 10.8 g/dl (12.0-16.0); LYMPHOCYTES # 2.7 10^3/ul (0.8-2.9); LYMPHOCYTES % 29.3 % (15.0-51.0); MEAN CORPUSCULAR HEMOGLOBIN 29.3 pg (29.0-33.0); MEAN CORPUSCULAR HGB CONC 33.9 g/dl (32.0-37.0); MEAN CORPUSCULAR VOLUME 86.7 fl (82.0-101.0); MEAN PLATELET VOLUME 9.8 fl (7.4-10.4); MONOCYTE # 0.7 10^3/ul (0.3-0.9); MONOCYTES % 7.2 % (0.0-11.0); NEUTROPHIL # 5.7 10^3/ul (1.6-7.5); NEUTROPHILS % 60.6 % (39.0-77.0); PLATELET COUNT 499 10^3/UL (140-415); RED BLOOD COUNT 3.68 10^6/ul (4.20-5.40); RED CELL DISTRIBUTION WIDTH 13.8 % (11.5-14.5)
[2018-07-13 06:13] LABS: WHITE BLOOD COUNT 9.3 10^3/ul (4.8-10.8)
[2018-07-13 06:54] LABS: ANION GAP 13 (5-13); BLOOD UREA NITROGEN 26 mg/dl (7-20); CALCIUM 9.3 mg/dl (8.4-10.2); CARBON DIOXIDE 24 mmol/L (21-31); CHLORIDE 100 mmol/L (97-110); CREATININE 0.59 mg/dl (0.44-1.00); Estimated GFR > 60 mL/min (>60); GLUCOSE 201 mg/dl (70-220); SODIUM 137 mmol/L (135-144)
[2018-07-13] MEDS: ALLOPURINOL 100 MG TAB PO ×2 (09:23→22:10)
[2018-07-13] MEDS: LISINOPRIL 5 MG TAB PO (09:23)
[2018-07-13] MEDS: COLLAGENASE 5 GM (UD JAR) TOP (09:24)
[2018-07-13] MEDS: ASPIRIN (EC) 81 MG TAB PO (09:24)
[2018-07-13] MEDS: FAMOTIDINE 20 MG TAB PO (09:24)
[2018-07-13] MEDS: BALSAM PERU/CASTOR OIL 60 GM TUBE TOP (09:24)
[2018-07-13] MEDS: ALBUTEROL/IPRATROPIUM (NEB) 3 ML AMP HHN (11:10)
[2018-07-13 14:31] LABS: INR 1.07; PT RATIO 1.1
[2018-07-13] MEDS: ATORVASTATIN 80 MG TAB PO (22:10)
[2018-07-14] MEDS: INSULIN ASPART [NOVOLOG] 3 ML PEN SC ×4 (01:55→18:53)
[2018-07-14] MEDS: HYDROCODONE/APAP (5/325) TAB PO ×2 (02:06→10:09)
[2018-07-14] MEDS: BALSAM PERU/CASTOR OIL 60 GM TUBE TOP (10:00)
[2018-07-14] MEDS: ALLOPURINOL 100 MG TAB PO ×2 (10:08→20:43)
[2018-07-14] MEDS: FAMOTIDINE 20 MG TAB PO (10:08)
[2018-07-14] MEDS: ASPIRIN 81 MG TAB PO (10:08)
[2018-07-14] MEDS: LISINOPRIL 5 MG TAB PO (10:09)
[2018-07-14] MEDS: COLLAGENASE 5 GM (UD JAR) TOP (10:10)
[2018-07-14] MEDS ORDERED: CEFAZOLIN 1 GM/50 ML (PMX) 50 ML IVPB (11:30)
[2018-07-14] MEDS: ATORVASTATIN 80 MG TAB PO (20:42)
[2018-07-15] MEDS: INSULIN ASPART [NOVOLOG] 3 ML PEN SC ×4 (06:00→18:00)
[2018-07-15] MEDS ORDERED: PROPOFOL 200 MG INJ (07:00)
[2018-07-15] MEDS: CEFAZOLIN 1 GM/50 ML (PMX) 50 ML IVPB (08:00)
[2018-07-15] MEDS: LISINOPRIL 5 MG TAB PO (08:39)
[2018-07-15] MEDS: ASPIRIN 81 MG TAB PO (08:39)
[2018-07-15] MEDS: FAMOTIDINE 20 MG TAB PO (08:39)
[2018-07-15] MEDS: ALLOPURINOL 100 MG TAB PO ×2 (08:40→21:17)
[2018-07-15] MEDS: COLLAGENASE 5 GM (UD JAR) TOP (09:00)
[2018-07-15] MEDS: BALSAM PERU/CASTOR OIL 60 GM TUBE TOP (09:00)
[2018-07-15] MEDS: PHENYLephrine (100 MCG/ML) 5ML SYG (16:18)
[2018-07-15] MEDS: CEFAZOLIN 1 GM/50 ML (PMX) 0 ML IVPB (16:19)
[2018-07-15] MEDS: CEFAZOLIN 2 GM/50 ML (PMX) 50 ML IVPB (16:20)
[2018-07-15] MEDS ORDERED: EPHEDrine SULFATE 50 MG/5 ML SYG IV ×2 (16:30→17:00)
[2018-07-15] MEDS ORDERED: hydrALAzine 20 MG INJ IV (16:30)
[2018-07-15] MEDS ORDERED: FENTAnyl 50 MCG/ML VIAL IV ×2 (16:30→17:00)
[2018-07-15] MEDS ORDERED: ONDANSETRON 4 MG INJ IV ×2 (16:30→17:00)
[2018-07-15] MEDS ORDERED: morphine (1 MG/ML) 10ML SYRINGE IV (16:30)
[2018-07-15] MEDS ORDERED: LABETALOL HCL 20MG INJ IV ×2 (16:30→17:00)
[2018-07-15] MEDS ORDERED: PHENYLephrine (100 MCG/ML) 5ML SYG (16:52)
[2018-07-15] MEDS ORDERED: METOCLOPRAMIDE 10 MG INJ IV (17:00)
[2018-07-15] MEDS ORDERED: ALBUMIN HUMAN 5% 250 ML IV (17:00)
[2018-07-15] MEDS: SOD CHLORIDE 0.45% 1,000 ML IV (18:49)
[2018-07-15] MEDS: ATORVASTATIN 80 MG TAB PO (21:17)
[2018-07-16] MEDS: INSULIN ASPART [NOVOLOG] 3 ML PEN SC ×4 (00:55→17:49)
[2018-07-16] MEDS: ASPIRIN 81 MG TAB PO (09:24)
[2018-07-16] MEDS: LISINOPRIL 5 MG TAB PO (09:25)
[2018-07-16] MEDS: COLLAGENASE 5 GM (UD JAR) TOP (09:25)
[2018-07-16] MEDS: FAMOTIDINE 20 MG TAB PO (09:25)
[2018-07-16] MEDS: ALLOPURINOL 100 MG TAB PO ×2 (09:25→22:36)
[2018-07-16] MEDS: SOD CHLORIDE 0.45% 1,000 ML IV (09:32)
[2018-07-16] MEDS: BALSAM PERU/CASTOR OIL 60 GM TUBE TOP (09:34)
[2018-07-16] MEDS: ATORVASTATIN 80 MG TAB PO (22:36)
[2018-07-17] MEDS: SOD CHLORIDE 0.45% 1,000 ML IV ×2 (00:35→16:09)
[2018-07-17] MEDS: INSULIN ASPART [NOVOLOG] 3 ML PEN SC ×4 (05:39→18:00)
[2018-07-17] MEDS: FAMOTIDINE 20 MG TAB PO (09:59)
[2018-07-17] MEDS: ASPIRIN 81 MG TAB PO (09:59)
[2018-07-17] MEDS: LISINOPRIL 5 MG TAB PO (09:59)
[2018-07-17] MEDS: ALLOPURINOL 100 MG TAB PO ×2 (12:16→23:00)
[2018-07-17] MEDS: COLLAGENASE 5 GM (UD JAR) TOP (16:03)
[2018-07-17] MEDS: BALSAM PERU/CASTOR OIL 60 GM TUBE TOP (16:14)
[2018-07-17] MEDS: ATORVASTATIN 80 MG TAB PO (21:49)
[2018-07-18] MEDS: INSULIN ASPART [NOVOLOG] 3 ML PEN SC ×4 (01:03→18:04)
[2018-07-18] MEDS: SOD CHLORIDE 0.45% 1,000 ML IV ×3 (06:30→21:19)
[2018-07-18] MEDS: BALSAM PERU/CASTOR OIL 60 GM TUBE TOP ×2 (09:00→12:32)
[2018-07-18] MEDS: ALLOPURINOL 100 MG TAB PO ×2 (09:16→21:15)
[2018-07-18] MEDS: FAMOTIDINE 20 MG TAB PO (09:17)
[2018-07-18] MEDS: ASPIRIN 81 MG TAB PO (09:17)
[2018-07-18] MEDS: LISINOPRIL 5 MG TAB PO (09:17)
[2018-07-18] MEDS: COLLAGENASE 5 GM (UD JAR) TOP (09:18)
[2018-07-18] MEDS: ATORVASTATIN 80 MG TAB PO (21:15)
[2018-07-19] MEDS: INSULIN ASPART [NOVOLOG] 3 ML PEN SC ×4 (04:25→18:00)
[2018-07-19] MEDS: FAMOTIDINE 20 MG TAB PO (09:15)
[2018-07-19] MEDS: LISINOPRIL 5 MG TAB PO (09:16)
[2018-07-19] MEDS: FUROSEMIDE 20 MG TAB PO (09:16)
[2018-07-19] MEDS: COLLAGENASE 5 GM (UD JAR) TOP (09:18)
[2018-07-19] MEDS: ALLOPURINOL 100 MG TAB PO ×2 (09:18→21:37)
[2018-07-19] MEDS: ASPIRIN 81 MG TAB PO (09:18)
[2018-07-19] MEDS: ACETAMINOPHEN 325 MG TAB PO (12:42)
[2018-07-19] MEDS: SOD CHLORIDE 0.45% 1,000 ML IV ×2 (14:30→19:30)
[2018-07-19] MEDS: ATORVASTATIN 80 MG TAB PO (21:37)
[2018-07-20] MEDS: INSULIN ASPART [NOVOLOG] 3 ML PEN SC ×5 (00:30→23:54)
[2018-07-20] MEDS: SOD CHLORIDE 0.45% 1,000 ML IV ×2 (05:12→20:51)
[2018-07-20 05:56] LABS: ADD MAN DIFF? NO
[2018-07-20 06:06] LABS: BASOPHILS % 0.4 % (0.0-2.0); EOSINOPHILS # 0.3 10^3/ul (0.0-0.5); EOSINOPHILS % 2.9 % (0.0-7.0); HEMATOCRIT 32.5 % (37.0-47.0); HEMOGLOBIN 10.6 g/dl (12.0-16.0); LYMPHOCYTES # 2.9 10^3/ul (0.8-2.9); LYMPHOCYTES % 28.7 % (15.0-51.0); MEAN CORPUSCULAR HEMOGLOBIN 28.6 pg (29.0-33.0); MEAN CORPUSCULAR HGB CONC 32.6 g/dl (32.0-37.0); MEAN CORPUSCULAR VOLUME 87.6 fl (82.0-101.0); MEAN PLATELET VOLUME 10.4 fl (7.4-10.4); MONOCYTE # 0.9 10^3/ul (0.3-0.9); MONOCYTES % 8.8 % (0.0-11.0); NEUTROPHIL # 5.9 10^3/ul (1.6-7.5); NEUTROPHILS % 58.4 % (39.0-77.0); PLATELET COUNT 435 10^3/UL (140-415); RED BLOOD COUNT 3.71 10^6/ul (4.20-5.40); RED CELL DISTRIBUTION WIDTH 13.8 % (11.5-14.5)
[2018-07-20 06:29] LABS: ANION GAP 10 (5-13); BLOOD UREA NITROGEN 17 mg/dl (7-20); CALCIUM 9.2 mg/dl (8.4-10.2); CARBON DIOXIDE 26 mmol/L (21-31); CHLORIDE 103 mmol/L (97-110); CREATININE 0.49 mg/dl (0.44-1.00); Estimated GFR > 60 mL/min (>60); GLUCOSE 158 mg/dl (70-220); POTASSIUM 3.5 mmol/L (3.5-5.1); SODIUM 139 mmol/L (135-144)
[2018-07-20] MEDS: ALLOPURINOL 100 MG TAB PO ×2 (08:58→20:50)
[2018-07-20] MEDS: BALSAM PERU/CASTOR OIL 60 GM TUBE TOP ×2 (09:00→15:52)
[2018-07-20] MEDS: LISINOPRIL 5 MG TAB PO (09:00)
[2018-07-20] MEDS: ASPIRIN 81 MG TAB PO (09:00)
[2018-07-20] MEDS: COLLAGENASE 5 GM (UD JAR) TOP ×2 (09:00→15:52)
[2018-07-20] MEDS: FAMOTIDINE 20 MG TAB PO (09:01)
[2018-07-20] MEDS: FUROSEMIDE 20 MG TAB PO (09:01)
[2018-07-20] MEDS: ATORVASTATIN 80 MG TAB PO (20:50)
[2018-07-21] MEDS: INSULIN ASPART [NOVOLOG] 3 ML PEN SC ×4 (06:11→23:46)
[2018-07-21] MEDS: ALLOPURINOL 100 MG TAB PO ×2 (08:23→21:50)
[2018-07-21] MEDS: LISINOPRIL 5 MG TAB PO (08:23)
[2018-07-21] MEDS: ASPIRIN 81 MG TAB PO (08:23)
[2018-07-21] MEDS: FAMOTIDINE 20 MG TAB PO (08:23)
[2018-07-21] MEDS: BALSAM PERU/CASTOR OIL 60 GM TUBE TOP (08:24)
[2018-07-21] MEDS: FUROSEMIDE 20 MG TAB PO (08:24)
[2018-07-21] MEDS: COLLAGENASE 5 GM (UD JAR) TOP (08:24)
[2018-07-21] MEDS: ACETAMINOPHEN 325 MG TAB PO (08:28)
[2018-07-21] MEDS: SOD CHLORIDE 0.45% 1,000 ML IV ×2 (12:07→13:06)
[2018-07-21] MEDS: ATORVASTATIN 80 MG TAB PO (21:50)
[2018-07-22] MEDS: INSULIN ASPART [NOVOLOG] 3 ML PEN SC ×4 (05:55→23:43)
[2018-07-22] MEDS: LISINOPRIL 5 MG TAB PO (09:00)
[2018-07-22] MEDS: FUROSEMIDE 20 MG TAB PO ×2 (09:45→20:28)
[2018-07-22] MEDS: FAMOTIDINE 20 MG TAB PO (09:45)
[2018-07-22] MEDS: ASPIRIN 81 MG TAB PO (09:45)
[2018-07-22] MEDS: ALLOPURINOL 100 MG TAB PO ×2 (09:45→20:27)
[2018-07-22] MEDS: BALSAM PERU/CASTOR OIL 60 GM TUBE TOP (09:46)
[2018-07-22] MEDS: COLLAGENASE 5 GM (UD JAR) TOP (09:46)
[2018-07-22] MEDS: FUROSEMIDE 20 MG INJ IV (20:00)
[2018-07-22] MEDS: ATORVASTATIN 80 MG TAB PO (20:27)
[2018-07-23] MEDS: INSULIN ASPART [NOVOLOG] 3 ML PEN SC ×4 (05:42→23:19)
[2018-07-23] MEDS: FUROSEMIDE 20 MG TAB PO ×2 (09:28→21:43)
[2018-07-23] MEDS: ASPIRIN 81 MG TAB PO (09:28)
[2018-07-23] MEDS: ALLOPURINOL 100 MG TAB PO ×2 (09:28→21:42)
[2018-07-23] MEDS: FAMOTIDINE 20 MG TAB PO (09:28)
[2018-07-23] MEDS: LISINOPRIL 5 MG TAB PO (09:29)
[2018-07-23] MEDS: BALSAM PERU/CASTOR OIL 60 GM TUBE TOP (09:30)
[2018-07-23] MEDS: COLLAGENASE 5 GM (UD JAR) TOP (09:30)
[2018-07-23] MEDS: ATORVASTATIN 80 MG TAB PO (21:42)
[2018-07-23] MEDS: HYDROCODONE/APAP (5/325) TAB PO (22:37)
[2018-07-24 05:50] LABS: ANION GAP 10 (5-13); BLOOD UREA NITROGEN 45 mg/dl (7-20); CALCIUM 9.8 mg/dl (8.4-10.2); CARBON DIOXIDE 31 mmol/L (21-31); CHLORIDE 100 mmol/L (97-110); CREATININE 0.89 mg/dl (0.44-1.00); Estimated GFR > 60 mL/min (>60); GLUCOSE 186 mg/dl (70-220); POTASSIUM 3.7 mmol/L (3.5-5.1); SODIUM 141 mmol/L (135-144)
[2018-07-24] MEDS: INSULIN ASPART [NOVOLOG] 3 ML PEN SC ×3 (06:02→18:03)
[2018-07-24] MEDS: FAMOTIDINE 20 MG TAB PO (08:50)
[2018-07-24] MEDS: ALLOPURINOL 100 MG TAB PO ×2 (08:50→20:15)
[2018-07-24] MEDS: ASPIRIN 81 MG TAB PO (08:50)
[2018-07-24] MEDS: COLLAGENASE 5 GM (UD JAR) TOP (08:50)
[2018-07-24] MEDS: BALSAM PERU/CASTOR OIL 60 GM TUBE TOP (08:51)
[2018-07-24] MEDS: FUROSEMIDE 20 MG TAB PO ×2 (08:52→20:16)
[2018-07-24] MEDS: LISINOPRIL 5 MG TAB PO (08:54)
[2018-07-24] MEDS: ACETAMINOPHEN 325 MG TAB PO (11:27)
[2018-07-24 19:31] LABS: TROPONIN-I 0.014 ng/ml (0.000-0.120)
[2018-07-24] MEDS: ATORVASTATIN 80 MG TAB PO (20:16)
[2018-07-25] MEDS: INSULIN ASPART [NOVOLOG] 3 ML PEN SC ×5 (00:54→23:55)
[2018-07-25] MEDS: FAMOTIDINE 20 MG TAB PO (09:18)
[2018-07-25] MEDS: COLLAGENASE 5 GM (UD JAR) TOP (09:18)
[2018-07-25] MEDS: ALLOPURINOL 100 MG TAB PO ×2 (09:18→21:44)
[2018-07-25] MEDS: ASPIRIN 81 MG TAB PO (09:19)
[2018-07-25] MEDS: FUROSEMIDE 20 MG TAB PO ×2 (09:19→21:45)
[2018-07-25] MEDS: BALSAM PERU/CASTOR OIL 60 GM TUBE TOP (09:21)
[2018-07-25] MEDS: LISINOPRIL 5 MG TAB PO (09:28)
[2018-07-25] MEDS: HYDROCODONE/APAP (5/325) TAB PO (10:46)
[2018-07-25] MEDS: ATORVASTATIN 80 MG TAB PO (21:44)
[2018-07-26] MEDS: INSULIN ASPART [NOVOLOG] 3 ML PEN SC ×3 (05:36→17:56)
[2018-07-26] MEDS: COLLAGENASE 5 GM (UD JAR) TOP (09:21)
[2018-07-26] MEDS: BALSAM PERU/CASTOR OIL 60 GM TUBE TOP (09:21)
[2018-07-26] MEDS: LISINOPRIL 5 MG TAB PO (09:22)
[2018-07-26] MEDS: FAMOTIDINE 20 MG TAB PO (09:23)
[2018-07-26] MEDS: FUROSEMIDE 20 MG TAB PO (09:23)
[2018-07-26] MEDS: ALLOPURINOL 100 MG TAB PO (09:23)
[2018-07-26] MEDS: ASPIRIN 81 MG TAB PO (09:23)
[2018-07-26] MEDS ORDERED: BARIUM SULFATE 135 ML (E-Z HD) PO (11:25)
[2018-07-26] MEDS: DIGOXIN 0.125 MG TAB PO (13:11)
== END 2018-07-26 18:40 | DRG 64 ==
LOC: 6WM 07-06 16:53 → E/R 13:51 → 6WM 07-01 14:35 → 2NE 07-16 18:45 → ICU 15:32
PROVIDERS: Hospitalist
PROC: 0DH63UZ Insertion of Feeding Device into Stomach, Percutaneous Approach (ICD-10-PCS; principal; 2018-07-15 16:00)
DX: I63.231 Cerebral infarction due to unspecified occlusion or stenosis of right carotid arteries (principal); N17.0 Acute kidney failure with tubular necrosis; I50.23 Acute on chronic systolic (congestive) heart failure; M62.82 Rhabdomyolysis; E87.0 Hyperosmolality and hypernatremia; E87.2 Acidosis; G81.94 Hemiplegia, unspecified affecting left nondominant side; I42.9 Cardiomyopathy, unspecified; R47.01 Aphasia; I11.0 Hypertensive heart disease with heart failure; I48.91 Unspecified atrial fibrillation; E86.0 Dehydration; E11.9 Type 2 diabetes mellitus without complications; E78.2 Mixed hyperlipidemia; R13.10 Dysphagia, unspecified; R29.810 Facial weakness; R00.0 Tachycardia, unspecified; R63.3 Feeding difficulties; R31.9 Hematuria, unspecified
CPT/HCPCS: 36415; 36600; 70450; 70496; 70498; 70551; 71045; 74230; 76775; 80048; 80053; 80061; 80307; 81001; 81003; 82550; 82553; 82570; 82803; 82962; 83036; 83605; 83735; 83880; 84100; 84300; 84439; 84443; 84484; 84560; 85025; 85610; 85651; 85730; 86592; 87040; 87081; 87086; 89190; 92507; 92526; 92610; 92611; 93005; 93306; 93880; 94640; 94664; 96374; 96375; 97110; 97163; 97167; 97530; 97535; 99291-25